=== PATIENT | female | born 1960 | race Caucasian/White ===

== ENCOUNTER 2019-02-26 14:26 | Emergency (ER) | payer BC ==
[2019-02-26 14:36] VITALS: BP 153/91
[2019-02-26] MEDS ORDERED: Sodium Chloride 0.9% 10 ML Syringe FLUSH PRN (14:45)
[2019-02-26] MEDS ORDERED: Sodium Chloride 0.9% 1,000 ML IV ONE (14:47)
--- NOTE | 2019-02-26 14:56 | EDM.PDOC ---
ED HPI GENERAL MEDICAL PROBLEM - General Chief Complaint: Gastrointestinal Problem Stated Complaint: ER VISIT Time Seen by Provider: 02/26/19 14:40 Source of Information: Reports: Patient History Limitations: Reports: No Limitations - History of Present Illness INITIAL COMMENTS - FREE TEXT/NARRATIVE: Patient comes into the emergency department with complaint of abdominal discomfort and severe diarrhea. Patient states that diarrhea and abdominal discomfort started approximately 6 days ago. Patient has a history of a colitis. Patient has gone almost 3 years without having a colitis flare. She believes the symptoms she is experiencing now are the same as all the other times she's had between 5 and 6 bowel movements a day that do have blood tinge noted. She has also felt nauseated but has not vomited. She has had a decrease in oral intake for she does not have an appetite she feels nauseated when she does eat.She can not think of any triggers in specific that make the flare up worse or better. The treatment in the past has been an enema for she does not tolerate sulfa drugs or steroids. Patient denies having any fever she did note that yesterday and today she's had the chills and body aches. She denies having any chest pain, shortness of breath, or edema. 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 Lower Back Pain Score (Numeric/FACES): 4 - Related Data Allergies Allergy/AdvReac Type Severity Reaction Status Date / Time Sulfa (Sulfonamide Allergy Hives Verified 02/26/19 14:39 Antibiotics) Home Meds: Home Meds Ibuprofen 400 mg PO Q6H PRN 07/01/16 [History] Acetaminophen [Tylenol Extra Strength] 500 - 1,000 mg PO Q4H 02/26/19 [History] Aspirin [Halfprin] 81 mg PO DAILY 02/26/19 [History] Venlafaxine HCl [Venlafaxine ER] 75 mg PO DAILY 02/26/19 [History] Past Medical History Cardiovascular History: Reports: High Cholesterol Gastrointestinal History: Reports: Other (See Below) Other Gastrointestinal History: ulcerative colitis Genitourinary History: Reports: Other (See Below) Other Genitourinary History: ovarian cyst, fibroid uterus, 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: Reports: Other (See Below) 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: hx of hysterectomy 2 years ago Musculoskeletal History: Reports: Other (See Below) Other Musculoskeletal History: radius fx, Psychiatric History: Reports: Panic Attack Dermatologic History: Reports: Psoriasis - Past Surgical History Female Surgical History: Reports: Hysterectomy, Tubal Ligation Social & Family History - Tobacco Use Smoking Status *Q: Never Smoker ED ROS GENERAL - Review of Systems Review Of Systems: See Below Constitutional: Reports: Chills, Malaise, Weakness, Decreased Appetite HEENT: Reports: No Symptoms Respiratory: Reports: No Symptoms Cardiovascular: Reports: No Symptoms Endocrine: Reports: No Symptoms GI/Abdominal: Reports: Abdominal Pain, Bloody Stool, Diarrhea, Decreased Appetite, Nausea Musculoskeletal: Reports: No Symptoms Skin: Reports: No Symptoms Neurological: Reports: No Symptoms Psychiatric: Reports: No Symptoms Hematologic/Lymphatic: Reports: No Symptoms Immunologic: Reports: No Symptoms ED EXAM, GENERAL - Physical Exam Exam: See Below Exam Limited By: No Limitations General Appearance: Alert, WD/WN, No Apparent Distress Head: Atraumatic, Normocephalic Neck: Normal Inspection, Supple, Non-Tender, Full Range of Motion Respiratory/Chest: No Respiratory Distress, Lungs Clear, Normal Breath Sounds, No Accessory Muscle Use, Chest Non-Tender Cardiovascular: Normal Peripheral Pulses, Regular Rate, Rhythm, No Edema, No Murmur GI/Abdominal: Soft, No Organomegaly, No Distention, No Mass, Abnormal Bowel Sounds Back Exam: Normal Inspection, Full Range of Motion Extremities: Normal Inspection, Normal Range of Motion, Non-Tender, No Pedal Edema, Normal Capillary Refill Neurological: Alert, Oriented, CN II-XII Intact, Normal Gait Psychiatric: Normal Affect, Normal Mood Skin Exam: Warm, Dry, Intact, Normal Color Course - Vital Signs Last Recorded V/S: Last Vital Signs Temp 37.2 C 02/26/19 14:35 Pulse 97 02/26/19 14:35 Resp BP 153/91 H 02/26/19 14:35 Pulse Ox 94 L 02/26/19 14:35 - Orders/Labs/Meds Orders: Active Orders 24 hr Category Date Time Status Sodium Chloride 0.9% [Saline Flush] Med 02/26/19 14:45 Ordered 10 ml FLUSH ASDIRECTED PRN Peripheral IV Insertion Adult [OM.PC] Stat Oth 02/26/19 14:45 Ordered Medication Orders Sodium Chloride (Saline Flush) 10 ml FLUSH ASDIRECTED PRN PRN Reason: Keep Vein Open Labs: Laboratory Tests 02/26/19 02/26/19 02/26/19 Range/Units 15:03 15:03 16:00 WBC 8.4 (4.0-10.0) x10^3/uL RBC 4.93 (4.00-5.50) x10^6/uL Hgb 14.1 (12.0-16.0) g/dL Hct 42.6 (33.0-47.0) % MCV 86.4 (78.0-93.0) fL MCH 28.6 (26.0-32.0) pg MCHC 33.1 (32.0-36.0) g/dL RDW Coeff of Daniel 13.0 (10.0-15.0) % Plt Count 305 (130-400) x10^3/uL Neut % (Auto) 88.3 H (50.0-80.0) % Lymph % (Auto) 6.7 L (25.0-50.0) % [place] % (Auto) 4.7 (2.0-11.0) % Eos % (Auto) 0.2 (0.0-4.0) % Baso % (Auto) 0.1 L (0.2-1.2) % ESR 9 (0-21) mm/hr Sodium 138 (136-145) mmol/L Potassium 3.9 (3.5-5.1) mmol/L Chloride 103 (98-107) mmol/L Carbon Dioxide 24 (21-32) mmol/L Anion Gap 14.9 (10-20) mmol/L BUN 15 (7-18) mg/dL Creatinine 0.8 (0.55-1.02) mg/dL Est Cr Clr Drug Dosing 75.44 mL/min Estimated GFR (MDRD) > 60 Glucose 105 (74-106) mg/dL Calcium 8.9 (8.5-10.1) mg/dL Corrected Calcium 9.22 (8.5-10.1) mg/dL Total Bilirubin 0.4 (0.2-1.0) mg/dL AST 35 (15-37) U/L ALT 41 (14-59) U/L Alkaline Phosphatase 110 (46-116) U/L C-Reactive Protein 2.3 H (<=0.9) mg/dL Total Protein 7.3 (6.4-8.2) g/dL Albumin 3.6 (3.4-5.0) g/dL Globulin 3.7 Albumin/Globulin Ratio 0.97 Stool Occult Blood Positive H (NEGATIVE) Meds: Medications Generic Name Dose Route Start Last Admin Trade Name Freq PRN Reason Stop Dose Admin Sodium Chloride 10 ml 02/26/19 14:45 Saline Flush FLUSH ASDIRECTED PRN Keep Vein Open Discontinued Medications Generic Name Dose Route Start Last Admin Trade Name Freq PRN Reason Stop Dose Admin Sodium Chloride 1,000 mls @ 1,000 mls/hr 02/26/19 14:47 02/26/19 15:05 Normal Saline IV 02/26/19 15:46 1,000 mls/hr ONETIME ONE Administration Ondansetron HCl 4 mg 02/26/19 14:57 02/26/19 15:12 Zofran IVPUSH 02/26/19 14:58 4 mg ONETIME ONE Administration Departure - Departure Time of Disposition: 16:30 Disposition: Home, Self-Care 01 Condition: Good Clinical Impression: Diarrhea, Ulcerative colitis, Diverticulosis of colon with hemorrhage, Proctitis - Discharge Information *PRESCRIPTION DRUG MONITORING PROGRAM REVIEWED*: Not Applicable *COPY OF PRESCRIPTION DRUG MONITORING REPORT IN PATIENT ALFREDO: Not Applicable Instructions: Diarrhea, Adult, Diarrhea, Adult, [id number], Diverticulitis, [id number] Referrals: Odessa Wellington, DO [Primary Care Provider] - Forms: ED Department Discharge Additional Instructions: 1. rest 2. increase your fluids 3. Follow up with PCP to obtain further refills. 4. Return if not feeling better with enema 5. activity and diet as tolerated 6. Call with any questions or concerns - My Orders Last 24 Hours: My Active Orders 02/26/19 14:45 Sodium Chloride 0.9% [Saline Flush] 10 ml FLUSH ASDIRECTED PRN Peripheral IV Insertion Adult [OM.PC] Stat - Assessment/Plan Last 24 Hours: My Active Orders 02/26/19 14:45 Sodium Chloride 0.9% [Saline Flush] 10 ml FLUSH ASDIRECTED PRN Peripheral IV Insertion Adult [OM.PC] Stat Assessment:: 1. abdominal pain-Colonic diverticulosis 2. nausea 3. bloody stool Plan: 1. Labs completed in ER. Results reviewed with the pt. 2. IV fluids given to the patient in the ER. 3. Zorfran given in ER to help with nausea 4. CT scan completed of abdomen-colonic diverticulosis with acute proctitis. 5. The hospital does not have Mesalamine enemas. Did contact [facility] who states they carry the enema. Pt will have a family member get the prescription for her. 6. Pt does not tolerate sulfonamides, or steroids and is not willing to take any of those medications. She is wanting a refill of the Mesalamine until she can see her PCP to obtain further scripts. 7. Phone prescription for 3 enemas were called in to [facility]. 8. Patient is advised to call PCP Thursday and gain more refills if needed. 9. Patient is educated regarding acitivity, diet, and follow up care. 10. All questions and concerns addressed prior to discharge.
[2019-02-26] MEDS ORDERED: Ondansetron 4 MG/2 ML SDV IVPUSH ONE (14:57)
[2019-02-26 15:30] LABS: CHLORIDE,CL 103 mmol/L (98-107); SODIUM,NA 138 mmol/L (136-145)
[2019-02-26 15:34] LABS: ANION GAP 14.9 mmol/L (10-20)
--- NOTE | 2019-02-26 16:06 | CT ---
[id number] CT/CT Abdomen Pelvis WO IV EXAM: CT Abdomen Pelvis WO IV CLINICAL DATA: BLOODY STOOLS, HX OF COLITIS COMPARISON STUDY: None. FINDINGS: Evaluation is limited without the use of IV or oral contrast. Dependent atelectasis at the lung bases bilaterally. Liver, spleen, gallbladder, pancreas, adrenal glands, and kidneys are unremarkable. The appendix is visualized and appears normal. Colonic diverticulosis. There is prominence of the rectum with surrounding fat stranding. Extensive mesenteric adenopathy which is nonspecific but could be seen with mesenteric adenitis. No free fluid, or pneumoperitoneum. Scattered changes of spondylosis the spine. No fracture or osseous lesion. IMPRESSION: 1. Colonic diverticulosis without evidence of acute diverticulitis. 2. Prominence of the rectum with surrounding fat stranding. This could be seen with acute proctitis. Correlate clinically. David Mcarthur DO 02/26/19 8021 Thank you for allowing us to participate in the care of your patient.
== END 2019-02-26 17:01 | disposition home or self-care (01) ==
LOC: SUPCPDRO 14:26 → VM.ED 14:26
DX: K57.31 Diverticulosis of large intestine without perforation or abscess with bleeding (principal); K51.20 Ulcerative (chronic) proctitis without complications; Z88.2 Allergy status to sulfonamides; Z79.82 Long term (current) use of aspirin; Z90.710 Acquired absence of both cervix and uterus; Z98.51 Tubal ligation status
CPT/HCPCS: 36415; 74176; 80053; 85025; 85652; 86140; 96365; 96375; 99285; G0328; J2405; J7030

== ENCOUNTER 2019-07-07 07:42 | Day surgery (SDC) | payer BC ==
[~2019-07-07 07:42] MED LIST: Lactated Ringers 1,000 ML IV SCH; Sodium Chloride 0.9% 10 ML Syringe FLUSH PRN
[2019-07-07] MEDS ORDERED: fentaNYL 100 MCG/2 ML SDV ONE (10:07)
[2019-07-07] MEDS ORDERED: Midazolam 1 MG/ML 2 ML SDV ONE (10:07)
[2019-07-07] MEDS ORDERED: Propofol 200 MG/20 ML SDV ONE (10:07)
[2019-07-07 11:25] VITALS: BP 137/77; PULSE 61
--- NOTE | 2019-07-07 13:32 | OR ---
DATE OF SURGERY: 07/07/2019. REFERRING PROVIDER: Odessa Wellington DO. PRE-OPERATIVE DIAGNOSES: 1. Colon cancer screening. 2. History of ulcerative colitis diagnosed 20 to 25 years ago per patient report. Last flare was 01/2019. Last colonoscopy was 3 years ago in 07/2016. 3. Positive family history of colon cancer in sister. POST-OPERATIVE DIAGNOSES: 1. Minimal proctitis present. 2. Minimal left-sided diverticulosis. 3. Multiple random biopsies taken from all segments of the colon and distal ileum. These include separate collections from the distal ileum, right colon, transverse colon, descending colon, sigmoid colon, rectum. PROCEDURE: Colonoscopy with multiple random biopsies from each segment of the colon as well as distal ileum using cold forceps. SURGEON: German Rivera M.D. ANESTHESIA: Monitored anesthesia care. BOWEL PREP: Good. Lilia is a 58-year-old female who was brought to the endoscopy suite after discussing risks and benefits of the procedure. Informed consent was obtained for conscious sedation and colonoscopy with or without biopsy and/or polypectomy. We also discussed possibility of missed lesions. Pre-procedure exam was unremarkable. IV, oxygen, and monitors were placed. The patient was placed in the left lateral decubitus position. Sedation was administered and a digital rectal exam was performed which was unremarkable except for some mild hemorrhoids/hemorrhoidal skin tags. Colonoscope was passed into the rectum and slowly advanced all the way to the cecum. Cecum was viewed and photographed. The ileocecal valve was intubated and distal ileum was normal in appearance. Random biopsies taken from there. The colonoscope was slowly withdrawn and the mucosa was closed observed in a direct circumferential manner. Multiple random biopsies were taken through the entire length of the colon and out into each segment as noted above. The ascending colon was unremarkable. The transverse colon was unremarkable. The descending colon was unremarkable. The sigmoid colon revealed some minimal diverticulosis. Retroflexion was performed and rectal mucosa revealed some minimal proctitis. Retroflexion was performed. Rectal mucosa did not reveal any significant hemorrhoids internally. Scope was removed. The patient tolerated the procedure well. The patient was monitored until that baseline status. Discharge instructions were reviewed and the patient was discharged in good condition. COMPLICATIONS: None. TOTAL TIME: 26 minutes. ESTIMATED BLOOD LOSS: About 2 mL. RECOMMENDATIONS/FOLLOW-UP: We will await results of path report to determine ideal follow up interval. I would suspect continuing with her 3-year follow up exams unless any dysplasia is seen on the path report from random biopsies. I would like to kindly thank Odessa Wellington for this referral. DMB: 07/07/2019 11:02:43 MODL: 07/07/2019 13:26:02 /[id number]
== END 2019-07-07 11:40 | disposition home or self-care (01) ==
LOC: VM.SDS 07:42
PROVIDERS: ATTEND Family Medicine
DX: Z12.11 Encounter for screening for malignant neoplasm of colon (principal); K51.90 Ulcerative colitis, unspecified, without complications; K57.30 Diverticulosis of large intestine without perforation or abscess without bleeding; K64.8 Other hemorrhoids; K64.4 Residual hemorrhoidal skin tags; K62.89 Other specified diseases of anus and rectum; E78.00 Pure hypercholesterolemia, unspecified; L40.9 Psoriasis, unspecified; G25.81 Restless legs syndrome; Z88.2 Allergy status to sulfonamides; Z80.0 Family history of malignant neoplasm of digestive organs; Z79.82 Long term (current) use of aspirin; Z79.899 Other long term (current) drug therapy
CPT/HCPCS: 45380; J2250; J2704; J3010; J7120

== ENCOUNTER 2021-06-06 18:24 | Emergency (ER) | payer BC, OTHER ==
[2021-06-06 18:36] VITALS: BP 142/66; PULSE 76
--- NOTE | 2021-06-06 19:41 | EDM.PDOC ---
ED HPI GENERAL MEDICAL PROBLEM - General Chief Complaint: Bite:Animal, Insect Stated Complaint: bee sting weak Time Seen by Provider: 06/06/21 18:24 Source of Information: Reports: Patient History Limitations: Reports: No Limitations - History of Present Illness INITIAL COMMENTS - FREE TEXT/NARRATIVE: Patient comes emergency department today from [facility] with concerns of a bee sting by ambulance. Patient was out as a social gathering in surgical specialty center [facility]. When she was stung on the right wrist on the ulnar side while she was outside. She has been stung by a bee many times in the past. She has never had anaphylaxis or reaction in the past. She was stung on the wrist in about 10 minutes later she reports that she felt "icky". She felt weak in the knees and nauseated. She did not have any chest pain syncope weakness dizziness lightheadedness. No swelling in her airway. No difficulty breathing. No wheezing no stridor. No syncope no palpitations. She had no abdominal pain. No vomiting. But she did have some nausea. The ambulance was summoned. She was brought to the emergency department during her trip by ambulance to the emergency department she was so comfortable she actually fell asleep she reports. Upon arrival the patient complains of some "ickiness" generalized and nausea. No other symptoms upon arrival. 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 Treatments - Related Data Allergies Allergy/AdvReac Type Severity Reaction Status Date / Time Sulfa (Sulfonamide Allergy Intermediate Hives Verified 06/06/21 18:45 Antibiotics) Home Meds: Home Meds Acetaminophen [Tylenol Extra Strength] 1,000 mg PO Q4H PRN 02/26/19 [History] Fluocinonide [Lidex 0.05% Crm] 1 applic TOP DAILY 07/06/19 [History] Venlafaxine HCl [Venlafaxine ER] 37.5 mg PO DAILY 06/06/21 [History] Past Medical History HEENT History: Reports: Impaired Vision, Other (See Below) Other HEENT History: left weepy eye Cardiovascular History: Reports: High Cholesterol Gastrointestinal History: Reports: Other (See Below) Other Gastrointestinal History: ulcerative colitis Genitourinary History: HVAC TECH History: Reports: Fibroids Other HVAC TECH History: hx of hysterectomy 2 years ago Musculoskeletal History: Reports: Back Pain, Chronic, Other (See Below) Other Musculoskeletal History: distal radius fx Neurological History: Reports: Other (See Below) Other Neuro History: restless leg syndrome Psychiatric History: Reports: Panic Attack, Other (See Below) Other Psychiatric History: adjustment disorder Endocrine/Metabolic History: Reports: Obesity/BMI 30+ Dermatologic History: Reports: Psoriasis, Other (See Below) Other Dermatologic History: core needle biopsy rt 2010 - Past Surgical History HEENT Surgical History: Reports: None Cardiovascular Surgical History: Reports: None Respiratory Surgical History: Reports: None GI Surgical History: Reports: Colonoscopy Female Surgical History: Reports: Hysterectomy, Salpingo-Oophorectomy, Tubal Ligation, Other (See Below) Other Female Surgeries/Procedures: ovarian cyst Social & Family History - Tobacco Use Tobacco Use Status *Q: Unknown Ever Used Tobacco - Caffeine Use Caffeine Use: Reports: Tea ED ROS GENERAL - Review of Systems Review Of Systems: Comprehensive ROS is negative, except as noted in HPI. ED EXAM, ANIMAL BITE - Physical Exam Exam: See Below Exam Limited By: No Limitations General Appearance: Alert, WD/WN, No Apparent Distress Eye Exam: Bilateral Eye: EOMI, PERRL Ears: Normal External Exam Nose: Normal Inspection Throat/Mouth: Normal Inspection, Normal Lips, Normal Teeth, Normal Gums, Normal Oropharynx, Normal Voice, No Airway Compromise, Other (No swelling in the oropharynx) Head: Atraumatic, Normocephalic Neck: Normal Inspection, Supple, Non-Tender, Full Range of Motion Respiratory/Chest: No Respiratory Distress, Lungs Clear, Normal Breath Sounds, No Accessory Muscle Use, Chest Non-Tender Cardiovascular: Normal Peripheral Pulses, Regular Rate, Rhythm, No Edema GI/Abdominal: Normal Bowel Sounds, Soft, Non-Tender (Female) Exam: Deferred Rectal (Female) Exam: Deferred Back Exam: Normal Inspection, Full Range of Motion Extremities: Normal Range of Motion, Non-Tender, No Pedal Edema, Normal Capillary Refill. No: Normal Inspection (On the ulnar side of the right wrist distal aspect there is a small puncture wound consistent with a some type of insect bite. There is a small amount of induration and swelling of pale redness. Rest of the extremity is unremarkable) Neurological: Alert, Oriented, CN II-XII Intact, Normal Cognition, Normal Gait, No Motor/Sensory Deficits Psychiatric: Normal Affect, Normal Mood Skin Exam: Normal Color, Warm/Dry. No: Rash (There is no rash other than on the right forearm. No hives.) Course - Vital Signs Last Recorded V/S: Last Vital Signs Temp 97.7 F 06/06/21 18:24 Pulse 76 06/06/21 18:24 Resp 18 06/06/21 18:24 BP 142/66 H 06/06/21 18:24 Pulse Ox 96 06/06/21 18:24 - Re-Assessments/Exams Free Text/Narrative Re-Assessment/Exam: 06/06/21 20:02 There is no sign of anaphylaxis upon arrival. She most likely has some post traumatic situation adrenaline letdown. She was monitored in the emergency department over the next half an hour. Ice was applied to the swelling to her wrist. She did feel back to her baseline. The symptoms of the "ichiness" and nausea have resolved. She did not want any Benadryl because she is a little sleepy on arrival and she wants to be able to make at home. There is no signs of anaphylaxis. We will discharge her home at this time. She can use some Benadryl to help with the swelling as well as ice packs. Recheck immediately if she develops any signs of anaphylaxis that were explained to her. He was comfortable with this plan and her questions were answered. Departure - Departure Time of Disposition: 21:37 Disposition: Home, Self-Care 01 Clinical Impression: Bee sting Qualifiers: Encounter type: initial encounter Injury intent: accidental or unintentional Qualified Code(s): T63.441A - Toxic effect of venom of bees, accidental (unintentional), initial encounter - Discharge Information Instructions: Pain Medicine Instructions, [id number], Insect Bite, Adult, [id number] Referrals: Odessa Wellington, [Primary Care Provider] - Forms: ED Department Discharge Additional Instructions: Ice to the area of the bee sting. Take it easy tonight. Benadryl as needed for the swelling in your wrist. If you develop any difficulty breathing hives recheck in the ED immediately. Follow up with PCP as needed. Sepsis Event Note (ED) - Evaluation Sepsis Screening Result: No Definite Risk - Focused Exam Vital Signs: Vital Signs Temp Pulse Resp BP Pulse Ox 06/06/21 18:24 97.7 F 76 18 142/66 H 96
== END 2021-06-06 19:48 | disposition home or self-care (01) ==
LOC: VM.ED 18:24
DX: T63.441A Toxic effect of venom of bees, accidental (unintentional), initial encounter (principal); E66.9 Obesity, unspecified; Z68.30 Body mass index [BMI] 30.0-30.9, adult; Z88.2 Allergy status to sulfonamides; Z79.899 Other long term (current) drug therapy
CPT/HCPCS: 99283

== ENCOUNTER 2023-04-30 07:32 | Day surgery (SDC) | payer BC, OTHER ==
[2023-04-30] MEDS ORDERED: Propofol 200 MG/20 ML SDV ONE ×2 (08:03→09:41)
[2023-04-30] MEDS ORDERED: fentaNYL 100 MCG/2 ML SDV ONE (08:03)
[2023-04-30 10:44] VITALS: BP 134/65; PULSE 57
== END 2023-04-30 11:17 | disposition home or self-care (01) ==
LOC: VM.SDS 07:32
PROVIDERS: ATTEND Family Medicine
DX: K52.9 Noninfective gastroenteritis and colitis, unspecified (principal); K57.30 Diverticulosis of large intestine without perforation or abscess without bleeding; E78.5 Hyperlipidemia, unspecified; F41.0 Panic disorder [episodic paroxysmal anxiety]; G25.81 Restless legs syndrome; E78.00 Pure hypercholesterolemia, unspecified; G47.00 Insomnia, unspecified; M79.671 Pain in right foot; Z87.19 Personal history of other diseases of the digestive system; Z79.899 Other long term (current) drug therapy; Z98.51 Tubal ligation status; Z90.710 Acquired absence of both cervix and uterus; Z88.2 Allergy status to sulfonamides
CPT/HCPCS: 00811; J2704; J3010; J7120

== ENCOUNTER 2025-08-06 12:48 | Emergency (ER) | payer MEDICARE, BC ==
[2025-08-06] MEDS ORDERED: Sodium Chloride 0.9% 10 ML Syringe FLUSH PRN (12:53)
[2025-08-06] MEDS: Ondansetron 4 MG/2 ML SDV IVPUSH ONE (13:01)
[2025-08-06] MEDS ORDERED: Midazolam 1 MG/ML 2 ML SDV IVPUSH PRN (13:41)
[2025-08-06] MEDS ORDERED: fentaNYL 100 MCG/2 ML SDV IVPUSH PRN (13:42)
[2025-08-06] MEDS: fentaNYL 100 MCG/2 ML SDV IVPUSH ONE (14:11)
[2025-08-06] MEDS: Midazolam 1 MG/ML 2 ML SDV IVPUSH ONE (14:13)
[2025-08-06 14:31] VITALS: BP 152/81; PULSE 60
== END 2025-08-06 16:09 | disposition short-term general hospital (02) ==
LOC: VM.ED 12:48
DX: S52.572A Other intraarticular fracture of lower end of left radius, initial encounter for closed fracture (principal); S52.602A Unspecified fracture of lower end of left ulna, initial encounter for closed fracture; E78.00 Pure hypercholesterolemia, unspecified; Z88.2 Allergy status to sulfonamides; Z79.899 Other long term (current) drug therapy; W18.39XA Other fall on same level, initial encounter; Y93.89 Activity, other specified
CPT/HCPCS: 25605; 29125; 73100; 73110; 96374; 96375; 96376; 99284; J0690; J1171; J2250; J2270; J2405; J3010